=== PATIENT | female | born 2000 | race African-American/Black ===

== ENCOUNTER 2023-07-29 19:48 | Emergency (ER) | payer MEDICAID ==
[~2023-07-29] VITALS: Ht 175.3 cm; Wt 79.4 kg
[2023-07-29 20:05] VITALS: BP 108/75; PULSE 58; RESP 16; TEMP 97.8; O2SAT 99
[2023-07-29] MEDS ORDERED: ACETAMINOPHEN EXTRA STRENGTH 500 MG TAB PO ONE (21:20)
[2023-07-29] MEDS ORDERED: ONDANSETRON 4 MG ODT PO ONE (21:20)
[2023-07-29] MEDS ORDERED: IBUP-2213 PO (22:53)
[2023-07-29 23:37] VITALS: BP 108/75; PULSE 58; RESP 16; TEMP 97.8; O2SAT 99
== END 2023-07-29 23:37 | disposition home or self-care (01) ==
LOC: MED 19:48
DX: S63.501A Unspecified sprain of right wrist, initial encounter (principal); S09.90XA Unspecified injury of head, initial encounter; W18.39XA Other fall on same level, initial encounter; Y93.89 Activity, other specified; Y92.22 Religious institution as the place of occurrence of the external cause; Y99.8 Other external cause status
CPT/HCPCS: 70450; 73110; 99284

== ENCOUNTER 2023-10-18 20:00 | Emergency (ER) | payer MEDICAID ==
[~2023-10-18] VITALS: Ht 175.3 cm; Wt 74.8 kg
[~2023-10-18 20:00] MED LIST: IBUP-2213 PO
[2023-10-18 20:39] VITALS: BP 115/61; PULSE 56; RESP 16; TEMP 98; O2SAT 100
[2023-10-18] MEDS ORDERED: IBUP-1842 PO (21:54)
[2023-10-18] MEDS ORDERED: ACET-10509 PO (21:54)
[2023-10-18] MEDS: IBUPROFEN 400 MG TAB PO ONE (22:06)
[2023-10-18] MEDS ORDERED: FLONAS NS (22:24)
[2023-10-18 22:31] LABS: FLU A ANTIGEN negative (NEGATIVE); FLU B ANTIGEN NEGATIVE (NEGATIVE)
== END 2023-10-18 22:41 | disposition home or self-care (01) ==
LOC: MED 20:00
DX: J32.9 Chronic sinusitis, unspecified (principal); Z20.822 Contact with and (suspected) exposure to COVID-19; Z79.899 Other long term (current) drug therapy
CPT/HCPCS: 87081; 99283